=== PATIENT | female | born 1955 | race Caucasian/White ===

== ENCOUNTER 2022-05-28 10:31 | Day surgery (SDC) | payer OTHER | END 2022-05-28 23:16 | disposition home or self-care (01) | LOC: CT 10:31 | DX: E78.5 Hyperlipidemia, unspecified (principal) | CPT/HCPCS: 75571 ==

== ENCOUNTER → 2022-07-28 | Outpatient (CLI) | payer MEDICARE, OTHER | LOC: LAB SHORT 13:54 → LAB 13:54 | DX: D48.5 Neoplasm of uncertain behavior of skin (principal) | CPT/HCPCS: 88305 ==

== ENCOUNTER → 2022-08-10 | Outpatient (CLI) | payer MEDICARE, OTHER | END | disposition home or self-care (01) | LOC: LAB 08:07 → LAB SHORT 08:07 | DX: C44.511 Basal cell carcinoma of skin of breast (principal) | CPT/HCPCS: 88305 ==

== ENCOUNTER → 2023-12-07 | Outpatient (CLI) | payer MEDICARE, OTHER | LOC: LAB SHORT 15:19 → PLD 15:19 | DX: L82.0 Inflamed seborrheic keratosis (principal) | CPT/HCPCS: 88305 ==

== ENCOUNTER → 2024-10-23 | Outpatient (CLI) | payer MEDICARE, OTHER ==
[2024-10-25 19:48] LABS: CALPROTECTIN,FECAL 5 ug/g (<=49)
== END | disposition home or self-care (01) ==
LOC: LAB 08:00 → LAB SHORT 08:00
PROVIDERS: Naturopath
DX: M85.80 Other specified disorders of bone density and structure, unspecified site (principal); K52.9 Noninfective gastroenteritis and colitis, unspecified; R63.5 Abnormal weight gain
CPT/HCPCS: 83993